=== PATIENT | female | born 1990 | race Two or more races ===

== ENCOUNTER 2020-11-20 05:48 | Inpatient (IN) | payer MEDICAID, OTHER ==
[~2020-11-20] VITALS: Ht 160 cm; Wt 72.6 kg
[~2020-11-20 05:48] MED LIST: LACT. RINGERS/OXYTOCIN 20UNITS 1,000 ML IV ONE; METHYLERGONOVINE MALEATE 0.2 MG/ML AMP IM ONE; OXYTOCIN 10UNIT/ML 1ML VIAL ONE; miSOPROStol 100 mcg TAB ONE
[2020-11-20] MEDS ORDERED: BUTORPHANOL TARTRATE 2 MG/1 ML VIAL ONE (05:53)
[2020-11-20] MEDS ORDERED: METHYLERGONOVINE MALEATE 0.2 MG/ML AMP IM ONE (06:45)
[2020-11-20] MEDS ORDERED: LACT. RINGERS/OXYTOCIN 20UNITS 500 ML IV ONE ×2 (06:45→07:15)
[2020-11-20] MEDS ORDERED: WITCH HAZEL-GLYCERIN PAD TOP PRN (06:45)
[2020-11-20] MEDS ORDERED: DERMOPLAST 60ML BOTTLE TOP PRN (06:45)
[2020-11-20] MEDS ORDERED: LIDOCAINE 2%HCL (LOCAL ANESTH.) INJ 20ML MDV IJ PRN (06:45)
[2020-11-20] MEDS ORDERED: BUTORPHANOL TARTRATE 2 MG/1 ML VIAL IV PRN (06:45)
[2020-11-20] MEDS ORDERED: PHISODERM TOP SOLN 240ML BTL TOP PRN (06:45)
[2020-11-20] MEDS: ACETAMINOPHEN 325 MG TAB PO PRN ×2 (07:53→16:46)
[2020-11-20 08:16] LABS: Basophils # (auto) 0.1 10 ^3/uL (0-0.2); Basophils % (auto) 0.3 % (0.0-2.0); Eosinophils # (auto) 0.1 10 ^3/uL (0-0.8); Eosinophils % (auto) 0.4 % (0.0-7.0); Hematocrit 32.8 % (36.0-46.0); Lymphocytes # (auto) 1.5 10 ^3/uL (0.4-5.4); Lymphocytes % (auto) 8.5 % (10.0-50.0); Mean Corpuscular Hemoglobin 31.4 pg (28.0-32.0); Mean Corpuscular Hgb Conc. 33.5 g/dL (32.0-36.0); Mean Corpuscular Volume 93.7 fL (80.0-100.0); Monocytes # (auto) 0.7 10 ^3/uL (0-1.3); Monocytes % (auto) 3.7 % (0.0-12.0); Neutrophils # (auto) 15.5 10 ^3/uL (1.6-8.6); Neutrophils % (auto) 87.1 % (37.0-80.0); Red Blood Cells 3.51 10^6/uL (4.0-5.20); Red Cell Distribution Width 13.6 % (11.8-14.3); White Blood Cell 17.8 10^3/uL (4.4-10.8)
[2020-11-20 08:21] LABS: INR 0.93 (0.9-1.15); Partial Thromboplastin Time 23.9 sec (23.6-33.0)
[2020-11-20 08:32] LABS: Albumin 2.4 g/dL (3.4-5.0); Potassium 3.7 mmol/L (3.5-5.1)
[2020-11-20 08:34] LABS: BUN/Creatinine Ratio 26.7; Bilirubin, Total 0.3 mg/dL (0.2-1.0)
[2020-11-20] MEDS: ceFAZolin 1GM/50ML 50 ML IV SCH ×2 (09:17→16:44)
[2020-11-20 11:00] VITALS: BP 113/58
[2020-11-20 11:07] LABS: Alcohol, Urine < 3.0 mg/dL (0-10); Amphetamine Screen, Urine NEGATIVE (NEGATIVE); Barbiturate Scree,Urine NEGATIVE (NEGATIVE); Benzodiazephine Screen, Urine NEGATIVE (NEGATIVE); Cannabinoid Screen, Urine POSITIVE (NEGATIVE); Cocaine Screen, Urine NEGATIVE (NEGATIVE); Phencyclidine Screen, Urine NEGATIVE (NEGATIVE); Urine Bacteria NONE SEEN /hpf (None Seen); Urine Blood Negative /uL (Negative); Urine Mucus FEW (None Seen); Urine Specific Gravity 1.013 (1.001-1.035); Urine WBC 1 /hpf (0 - 5)
[2020-11-20 11:14] LABS: Opiate Scree,Urine NEGATIVE (NEGATIVE)
[2020-11-20] MEDS: IBUPROFEN 600 MG TAB PO PRN ×2 (12:28→20:18)
[2020-11-20 15:12] VITALS: BP 110/53
[2020-11-20 19:30] VITALS: BP 121/61
[2020-11-20 23:20] VITALS: BP 132/62
[2020-11-21] MEDS: ACETAMINOPHEN 325 MG TAB PO PRN ×5 (00:08→22:52)
[2020-11-21] MEDS: ceFAZolin 1GM/50ML 50 ML IV SCH (00:22)
[2020-11-21] MEDS: IBUPROFEN 600 MG TAB PO PRN ×5 (01:49→19:48)
[2020-11-21] MEDS ORDERED: ACETAMINOPHEN 325 MG TAB PO ONE (02:51)
[2020-11-21 03:30] VITALS: BP 125/72
[2020-11-21] MEDS ORDERED: FERROUS SULFATE 325mg EC TAB PO SCH (08:00)
[2020-11-21 11:13] VITALS: BP 129/64
[2020-11-21 19:00] VITALS: BP 106/61
[2020-11-21 22:56] VITALS: BP 119/88
[2020-11-22] MEDS: IBUPROFEN 600 MG TAB PO PRN ×2 (00:55→06:59)
[2020-11-22 03:00] VITALS: BP 112/53
[2020-11-22] MEDS: ACETAMINOPHEN 325 MG TAB PO PRN (03:52)
[2020-11-22 06:06] LABS: RPR Non Reactive (Non Reactive); Rubella Antibodies, IgG <0.90 index (Immune >0.99)
[2020-11-22 06:45] VITALS: BP 130/82
[2020-11-22] MEDS ORDERED: PREN27TA7 OR (08:12)
[2020-11-22] MEDS ORDERED: MEASLES, MUMPS & RUBELLA VAC(MMRII) 0.5ML SC ONE (09:30)
== END 2020-11-22 09:30 | disposition home or self-care (01) | DRG 548 ==
LOC: LDRP 05:48
PROVIDERS: ADMIT Obstetrics & Gynecology; ATTEND Obstetrics & Gynecology
PROC: 10D17ZZ Extraction of Products of Conception, Retained, Via Natural or Artificial Opening (ICD-10-PCS; principal; 2020-11-20)
PROC: 0HQ9XZZ Repair Perineum Skin, External Approach (ICD-10-PCS; 2020-11-20)
DX: O70.0 First degree perineal laceration during delivery (principal); O72.2 Delayed and secondary postpartum hemorrhage; Z37.0 Single live birth; Z20.822 Contact with and (suspected) exposure to COVID-19; Z3A.38 38 weeks gestation of pregnancy
CPT/HCPCS: 36415; 59414; 80053; 80307; 81001; 85025; 85610; 85730; 86592; 86762; 86850; 86900; 86901; 87340; 87426; 94760; G0378; J0690; J2590